=== PATIENT | female | born 1965 | race Caucasian/White ===

== ENCOUNTER 2022-10-06 14:47 | Observation (INO) | payer BC, OTHER ==
--- NOTE | 2022-10-06 16:06 | ED ---
Chest Pain HPI - General Chief Complaint: Chest Pain Stated Complaint: HTN Time Seen by Provider: 10/06/22 15:00 Source: patient, RN notes reviewed Mode of arrival: ambulatory Limitations: no limitations - History of Present Illness Initial Comments: 57-year-old female with a history of hypertension and takes lisinopril 40 mg per day who states that she was at her dentist office yesterday the x-ray when she was found have a very elevated blood pressure. On questioning by me she states she did not have any chest pain but did report the injury at that she was having intermittent chest pain and fatigue. Today she was to go down to her doctor's office in [facility] but when she arrived they did not have any ability to see her so she came back here. She denies any fevers chills nausea vomiting sweats she does have a history of smoking but states was never diagnosed with COPD or emphysema. Patient also states she was recently treated for a suspected UTI. She had frequency and states that her urine smelled kind of sweet she states that she still has some frequency. MD Complaint: chest pain, other - Related Data Home Medications Medication Instructions Recorded Confirmed Cyclobenzaprine [Flexeril] 1 tab PO TID PRN 03/14/14 03/14/14 Glimepiride [Amaryl] 2 mg PO AC-BRKFST 03/14/14 03/14/14 HYDROcodone/APAP 7.5-325MG [[place] 1 each PO Q4H PRN 03/14/14 03/14/14 7.5] HYDROcodone/IBUPROFEN 7.5-200 1 each PO Q8HR PRN 03/14/14 03/14/14 [Vicoprofen 7.5-200 mg] Levothyroxine Sodium [Synthroid] 50 mcg PO DAILY 03/14/14 03/14/14 metFORMIN HCL [Glucophage] 1,000 mg PO DAILY 03/14/14 03/14/14 Allergies Allergy/AdvReac Type Severity Reaction Status Date / Time No Known Allergies Allergy Verified 10/06/22 17:56 Review of Systems ROS Statement: Those systems with pertinent positive or pertinent negative responses have been documented in the HPI. ROS Other: All systems not noted in ROS Statement are negative. EKG Findings - EKG Results: EKG: interpreted by ERMTg, sinus rhythm (EKG interpreted by me shows sinus tachycardia rate 103 AK interval 120 QRS duration 82 QT since QTC 337/397 some artifact present no acute ST-T wave changes appreciated) Past Medical History Past Medical History: Diabetes Mellitus, Hyperlipidemia, Hypertension, Thyroid Disorder Additional Past Medical History / Comment(s): back pain History of Any Multi-Drug Resistant Organisms: None Reported Past Surgical History: Cholecystectomy, Hysterectomy, Tonsillectomy Additional Past Surgical History / Comment(s): neck surgery Past Psychological History: No Psychological Hx Reported Smoking Status: Current every day smoker Past Alcohol Use History: None Reported Past Drug Use History: None Reported General Exam - General Exam Comments Initial Comments: This is a well-developed well-nourished awake alert oriented 4 female Limitations: no limitations General appearance: alert, in no apparent distress Head exam: Present: atraumatic, normocephalic, normal inspection Eye exam: Present: normal appearance, PERRL, EOMI. Absent: scleral icterus, conjunctival injection, periorbital swelling ENT exam: Present: mucous membranes dry Neck exam: Present: normal inspection, full ROM, other (Stridor JVD or bruits). Absent: tenderness, meningismus, lymphadenopathy Respiratory exam: Present: normal lung sounds bilaterally. Absent: respiratory distress, wheezes, rales, rhonchi, stridor Cardiovascular Exam: Present: regular rate, normal rhythm, normal heart sounds. Absent: systolic murmur, diastolic murmur, rubs, gallop, clicks GI/Abdominal exam: Present: soft, normal bowel sounds. Absent: distended, tenderness, guarding, rebound, rigid Extremities exam: Present: normal inspection, full ROM, normal capillary refill. Absent: tenderness, pedal edema, joint swelling, calf tenderness Back exam: Present: normal inspection Neurological exam: Present: alert, oriented X3, CN II-XII intact Psychiatric exam: Present: normal affect, normal mood Skin exam: Present: warm, dry, intact, normal color. Absent: rash Course Vital Signs 10/06/22 14:52 Temperature 97 F L Pulse Rate 100 Respiratory 20 Rate Blood Pressure 200/85 O2 Sat by Pulse 99 Oximetry - Reevaluation(s) Reevaluation #1: 10/06/22 18:05 The patient was offered a 60 pack states they make her sick she states she started smoking again that her one year ago she's working through that and does plan to quit. Procedures - Smoking Cessation Time Spent Discussing Smoking Cessation w/Patient (Minutes): 31 Patient Acknowledges Need for Cessation: Yes Chest Pain MDM - MDM (Interpreted by me negative for acute processes. I did discuss the findings thus far the patient she states she is still having intermittent chest pain issue and I examined her she had no pain. He states this feels as if her daughter sitting on her chest when she has the pain. She will be admitted I did discuss case with Drew gonsalez for Dr. Taylor. Was pt. sent in by a medical professional or institution (, PA, FEATHER M[employer]ER, urgent care, hospital, or penitentiary...) When possible be specific @ -No Did you speak to anyone other than the patient for history (EMS, parent, family, police, friend...)? What history was obtained from this source @ -No Did you review nursing and triage notes (agree or disagree)? Why? @ -I reviewed and agree with nursing and triage notes Were old charts reviewed (outside hosp., previous admission, EMS record, old EKG, old radiological studies, urgent care reports/EKG's, penitentiary records)? Report findings @ -No old charts were reviewed as they were unavailable Differential Diagnosis (chest pain, altered mental status, abdominal pain women, abdominal pain men, vaginal bleeding, weakness, fever, dyspnea, syncope, headache, dizziness, GI bleed, back pain, seizure, CVA, palpatations, mental health)? @ -Chest pain, hypertension EKG interpreted by me (3pts min.). @ -As above X-rays interpreted by me (1pt min.). @ -As above CT interpreted by me (1pt min.). @ -None done U/S interpreted by me (1pt. min.). @ -None done What testing was considered but not performed or refused? (CT, X-rays, U/S, labs)? Why? @ -None What meds were considered but not given or refused? Why? @ -None Did you discuss the management of the patient with other professionals (professionals i.e. , RENETTA, FEATH[facility] [employer]ER, lab, RT, psych nurse, clinical social worker, caramel candy maker helper, teacher, loan servicing officer, rn case management)? Give summary @ -No Was smoking cessation discussed for >3mins.? @ -Yes Was critical care preformed (if so, how long)? @ -Yes 31 minutes Were there social determinants of health that impacted care today? How? (Homelessness, low income, unemployed, alcoholism, drug addiction, transportatio n, low edu. Level, literacy, decrease access to med. care, long-term, rehab)? @ -No Was there de-escalation of care discussed even if they declined (Discuss DNR or withdrawal of care, Hospice)? DNR status @ -No What co-morbidities impacted this encounter? (DM, HTN, Smoking, COPD, CAD, Cancer, CVA, ARF, Chemo, Hep., AIDS, mental health diagnosis, sleep apnea, morbid obesity)? @ -Diabetes, hypertension, hyperlipidemia] Was patient admitted / discharged? Hospital course, mention meds given and route, prescriptions, significant lab abnormalities, going to OR and other pertinent info. @ -hospital course patient was admitted Undiagnosed new problem with uncertain prognosis? @ -No Drug Therapy requiring intensive monitoring for toxicity (Heparin, Nitro, Insulin, Cardizem)? @ -No Were any procedures done? @ -No Diagnosis/symptom? @ -default chest pain, unstable angina, hypertension Acute, or Chronic, or Acute on Chronic? @ -Acute Uncomplicated (without systemic symptoms) or Complicated (systemic symptoms)? @ -default Side effects of treatment? @ -No Exacerbation, Progression, or Severe Exacerbation? @ -No Poses a threat to life or bodily function? How? (Chest pain, [place], [place], pneumonia, PE, COPD, DKA, ARF, appy, cholecystitis, CVA, Diverticulitis, Homicidal, Suicidal, threat to staff... and all critical care pts) @ -Potential is not treated Critical Care Time Critical Care Time: Yes Total Critical Care Time: 31 Critical Care Time: This included initial evaluation with history physical labs x-rays multiple reevaluation the patient discussed with the patient regarding findings admission orders discussed with the main service admission documentation of the above Disposition Clinical Impression: Unstable angina pectoris, Chest pain, Hypertension, Smoking Disposition: ADMITTED IP TO THIS [facility] Condition: Stable Referrals: None,Stated [Primary Care Provider] - 1-2 days Decision Date: 10/06/22 Decision Time: 17:45
--- NOTE | 2022-10-06 16:23 | XR ---
EXAMINATION TYPE: XR chest 2V DATE OF EXAM: 10/06/2022 COMPARISON: NONE HISTORY: Shortness of breath TECHNIQUE: Frontal and lateral views of the chest are obtained. FINDINGS: Scattered senescent parenchymal changes noted. Hyperinflation compatible with COPD. No evidence for infiltrate. No evidence for atelectasis. Heart size is stable. Mediastinal structures are stable and grossly unremarkable. No evidence for hilar prominence. Degenerative changes dorsal spine. IMPRESSION: 1. No evidence for acute pulmonary disease.
[2022-10-06 16:35] LABS: Basophils % (A) 0 %; Eosinophils # (A) 0.2 k/uL (0-0.7); Eosinophils % (A) 3 %; HCT 36.8 % (34.0-46.0); HGB 12.4 gm/dL (11.4-16.0); Lymphocytes # (A) 1.6 k/uL (1.0-4.8); Lymphocytes % (A) 20 %; MCH 29.2 pg (25.0-35.0); MCHC 33.6 g/dL (31.0-37.0); Mean Platelet Volume 8.5; Monocytes # (A) 0.5 k/uL (0-1.0); Monocytes % (A) 7 %; Neutrophils # (A) 5.4 k/uL (1.3-7.7); Neutrophils % (A) 69 %; Platelet Count 156 k/uL (150-450); RBC 4.23 m/uL (3.80-5.40); RDW 13.1 % (11.5-15.5); WBC 7.9 k/uL (3.8-10.6)
[2022-10-06 16:46] LABS: Potassium 4.8 mmol/L (3.5-5.1)
[2022-10-06 16:47] LABS: ALT 23 U/L (4-34); AST 23 U/L (14-36); African American GFR (CKD) 65 (>60 ml/min/1.73 sqM); Albumin 3.1 g/dL (3.5-5.0); Alkaline Phosphatase 74 U/L (38-126); Anion Gap 2 mmol/L; Blood Urea Nitrogen 20 mg/dL (7-17); Calcium 8.2 mg/dL (8.4-10.2); Carbon Dioxide 27 mmol/L (22-30); Chloride 107 mmol/L (98-107); Creatine Kinase 124 U/L (30-135); Glucose 168 mg/dL (74-99); Magnesium 1.8 mg/dL (1.6-2.3); Non-African American GFR(CKD) 56 (>60 ml/min/1.73 sqM); Sodium 136 mmol/L (137-145); Total Bilirubin 0.3 mg/dL (0.2-1.3); Total Protein 5.4 g/dL (6.3-8.2)
[2022-10-06] MEDS ORDERED: SODIUM CHLORIDE 0.9% 500 ML 500 ML IV STA (17:31)
[2022-10-06 17:42] LABS: Appearance,Urine Clear (Clear); Bacteria,Urine Rare /hpf; Bilirubin,Urine Negative (Negative); Blood,Urine Small (Negative); Color,Urine Light Yellow; Glucose,Urine (UA) Trace (Negative); Ketones,Urine Negative (Negative); Leukocyte Esterase,Urine Negative (Negative); Mucus,Urine Rare /hpf; Nitrite,Urine Negative (Negative); Protein,Urine 3+ (Negative); RBC,Urine 6 /hpf (0-5); Specific Gravity,Urine 1.008 (1.001-1.035); Urobilinogen,Urine <2.0 mg/dL (<2.0); WBC,Urine 1 /hpf (0-5)
[2022-10-06] MEDS ORDERED: HEPARIN SODIUM 1,000 UN/ML (10ML VL) IV ONE (18:08)
[2022-10-06] MEDS ORDERED: NITROGLYCERIN SL TABS 0.4 MG TAB SUBLINGUAL PRN (18:08)
[2022-10-06] MEDS ORDERED: clonazePAM 1 MG TAB PO PRN (18:11)
[2022-10-06] MEDS ORDERED: polyethylene glycoL 3350 17 GM POWD.PACK PO PRN (18:11)
[2022-10-06] MEDS ORDERED: HEPARIN SOD,PORK IN 0.45% NACL 25,000 UNIT in 0.45% NACL 1 250ML.BAG IV SCH (18:15)
[2022-10-06] MEDS: SODIUM CHLORIDE 0.9% 1,000 ML IV SCH (19:39)
[2022-10-06] MEDS ORDERED: INSULIN DETEMIR (LEVEMIR) 100 UNIT/ML SYR SQ SCH (21:00)
[2022-10-06] MEDS ORDERED: lisinopriL 20 MG TAB PO SCH (21:00)
[2022-10-06] MEDS ORDERED: GLIMEPIRIDE 4 MG TAB PO SCH (21:00)
[2022-10-06] MEDS ORDERED: LEVOTHYROXINE 50 MCG TAB PO SCH (21:00)
[2022-10-06] MEDS ORDERED: HYDROcodone/APAP 10-325MG 1 EACH TAB PO SCH (22:00)
[2022-10-06 22:12] LABS: Glucose,Whole Blood 56 mg/dL (70-110)
[2022-10-06 22:27] LABS: Glucose,Whole Blood 55 mg/dL (70-110)
[2022-10-06 22:43] LABS: Glucose,Whole Blood 66 mg/dL (70-110)
[2022-10-06 22:57] LABS: Glucose,Whole Blood 69 mg/dL (70-110)
[2022-10-06 23:15] LABS: Glucose,Whole Blood 76 mg/dL (70-110)
[2022-10-06] MEDS: NITROGLYCERIN OINT 1 INCH/GM PACKET TOPICAL SCH (23:27)
[2022-10-07 01:28] LABS: Glucose,Whole Blood 110 mg/dL (70-110)
[2022-10-07] MEDS ORDERED: cloNIDine HCL 0.2 MG TAB PO PRN (03:44)
--- NOTE | 2022-10-07 03:58 | P.HPIM ---
History of Present Illness H&P Date: 10/06/22 Chief Complaint: chest pain 57 year old female with DM , hypertension patient coming in for evaluation due to uncontrolled hypertension and chest pain patient was at her baseline status of health. she had a dentist appointment for routine check up, when the nurse checked her blood pressure and found it was elevated , it was repeated 3 times and found to have elevated systolic blood pressure in the 190s range . her appointment cancelled and she was told to see her PCP. she was in contact with her PCP who asked her to come see him in the Office, upon her arrival , the staff told her that the doc cant see her. she drove 1.5 hours to see him, and was very upset because of that, she started having chest pressure. then she went to the car and checked her blood pressure with her machine and found that her systolic blood pressure >190 she started experiencing central chest pressure rated it as 6/10 pressure like sensation no radiation no associated nausea , vomiting, no SOB, no profuse sweating, no dizziness, no palpitations, no headache, changes in vision or speech. she was very concerned and took a klonopin pill that made her feel better and came to the ER for evaluation . she otherwise denies any cardiac history , she denies any recent travel or ho spital stay , denies any history of blood clots. upon arrival to the hospital , she was found hypertensive , and was admitted for further management EKG no acute ST changes, blood work over all unremarkable , negative trops , CXR no acute pathology blood sugar was on the lower end , especially after her night dose of levemir Review of Systems Pertinent positives as noted in HPI. All other systems were reviewed and are negative Past Medical History Past Medical History: Diabetes Mellitus, Hyperlipidemia, Hypertension, Thyroid Disorder Additional Past Medical History / Comment(s): back pain History of Any Multi-Drug Resistant Organisms: None Reported Past Surgical History: Cholecystectomy, Hysterectomy, Tonsillectomy Additional Past Surgical History / Comment(s): neck surgery with metal placed Past Anesthesia/Blood Transfusion Reactions: No Reported Reaction Past Psychological History: No Psychological Hx Reported Smoking Status: Current every day smoker Past Alcohol Use History: None Reported Past Drug Use History: None Reported - Past Family History Mother Family Medical History: Diabetes Mellitus, Thyroid Disorder Additional Family Medical History / Comment(s): breast CA Father Family Medical History: Cancer, Coronary Artery Disease (CAD), Diabetes Mellitus, Thyroid Disorder Additional Family Medical History / Comment(s): colon/skin cancer Medications and Allergies Home Medications Medication Instructions Recorded Confirmed Type Levothyroxine Sodium [Synthroid] 50 mcg PO HS 03/14/14 10/06/22 History Glimepiride [Amaryl] 4 mg PO HS 10/06/22 10/06/22 History HYDROcodone/APAP 10-325MG [[place] 1 tab PO QID 10/06/22 10/06/22 History 10-325] Insulin Glargine,Hum.rec.anlog 60 units SQ HS 10/06/22 10/06/22 History [Lantus Solostar Pen] Lidocaine 5% Patch [Lidoderm] 1 patch TOPICAL DAILY PRN 10/06/22 10/06/22 History clonazePAM [KlonoPIN] 1 mg PO DAILY PRN 10/06/22 10/06/22 History lisinopriL [Zestril] 40 mg PO HS 10/06/22 10/06/22 History polyethylene glycoL 3350 [Miralax] 17 gm PO DAILY PRN 10/06/22 10/06/22 History Allergies Allergy/AdvReac Type Severity Reaction Status Date / Time No Known Allergies Allergy Verified 10/06/22 17:56 Physical Exam Vitals: Vital Signs Temp Pulse Pulse Resp BP BP Pulse Ox 10/06/22 23:24 97.9 F 80 16 149/76 98 10/06/22 22:13 97.8 F 89 18 167/91 98 10/06/22 21:00 90 16 181/100 99 10/06/22 19:30 84 16 196/101 98 10/06/22 19:00 204/109 10/06/22 18:00 157/81 10/06/22 17:00 80 21 172/89 97 10/06/22 16:00 86 20 187/95 98 10/06/22 15:04 104 H 21 10/06/22 14:52 97 F L 100 20 200/85 99 Intake and Output 10/06/22 10/06/22 10/07/22 14:59 22:59 06:59 Intake Total 45.185 Balance 45.185 Intake: Intake, IV Titration 45.185 Amount Heparin Sod,Pork in 0.45% 45.185 NaCl 25,000 unit In 0.45 % NaCl 1 250ml.bag @ 12 UNITS/KG/HR 9.253 mls/hr IV .Q24H [facility] Rx#: [id number] Other: Voiding Method Toilet Weight 77.111 kg 77.111 kg Constitutional: No acute distress, conversant, pleasant Eyes: Anicteric sclerae, moist conjunctiva, Pupils equal round reactive to light ENMT: NC/AT Oropharynx clear, no erythema, or exudates Neck: Supple, no masses, or JVD No carotid bruits No thyromegaly Lungs: reproducible chest pain upon palpation Clear to auscultation Clear to percussion Normal respiratory effort, no accessory muscle use Cardiovascular: Heart regular in rate and rhythm, No murmurs, gallops, or rubs No peripheral edema Abdominal: Soft Nontender, no guarding, rebound or rigidity Abdomen moving with respiration Normoactive bowel sounds No hepatomegaly, No splenomegaly No palpable mass No abdominal wall hernia noted Skin: Normal temperature, tone, texture, turgor No induration No subcutaneous nodules No rash, lesions No ulcers Extremities: No digital cyanosis No clubbing Pedal pulses intact and symmetrical Radial pulses intact and symmetrical No calf tenderness Psychiatric: Alert and oriented to person, place and time Appropriate affect fair judgement Neuro Muscles Strength 5/5 in all 4 extremities Sensation to light touch grossly present throughout Cranial nerves II-XII grossly intact Lymphatics: no palpable cervical or supraclavicular lymph nodes Results CBC & Chem 7: 10/06/22 16:14 10/06/22 16:14 Labs: Abnormal Lab Results - Last 24 Hours (Table) 10/06/22 10/06/22 10/06/22 Range/Units 16:14 16:14 22:07 Sodium 136 L (137-145) mmol/L BUN 20 H (7-17) mg/dL Creatinine 1.08 H (0.52-1.04) mg/dL Glucose 168 H (74-99) mg/dL POC Glucose (mg/dL) 56 L (70-110) mg/dL Calcium 8.2 L (8.4-10.2) mg/dL Total Protein 5.4 L (6.3-8.2) g/dL Albumin 3.1 L (3.5-5.0) g/dL Urine Protein 3+ H (Negative) Urine Glucose (UA) Trace H (Negative) Urine Blood Small H (Negative) Urine RBC 6 H (0-5) /hpf Urine Bacteria Rare H (None) /hpf Urine Mucus Rare H (None) /hpf 10/06/22 10/06/22 10/06/22 Range/Units 22:25 22:40 22:55 Sodium (137-145) mmol/L BUN (7-17) mg/dL Creatinine (0.52-1.04) mg/dL Glucose (74-99) mg/dL POC Glucose (mg/dL) 55 L 66 L 69 L (70-110) mg/dL Calcium (8.4-10.2) mg/dL Total Protein (6.3-8.2) g/dL Albumin (3.5-5.0) g/dL Urine Protein (Negative) Urine Glucose (UA) (Negative) Urine Blood (Negative) Urine RBC (0-5) /hpf Urine Bacteria (None) /hpf Urine Mucus (None) /hpf Thrombosis Risk Factor Assmnt - Choose All That Apply Any of the Below Risk Factors Present?: Yes Each Factor Represents 1 point: Age 41-60 years, Obesity (BMI >25) Other Risk Factors: No Thrombosis Risk Factor Assessment Total Risk Factor Score: 2 Thrombosis Risk Factor Assessment Level: Low Risk Assessment and Plan Assessment: atypical chest pain , reproducible to the touch trops negative EKG sinus tachycardia , no acute ST changes, CXR no acute pathology monitor vital signs ASA , statin nitro PRN resume klonopin PRN ambien for insomnia cardiology consult dog beautician discontinue heparin drip hypertensive urgency resume lisinopril , home med add amlodipine 5 mg daily clonidin 0.2 Mg PRN for systolic blood pressure >180 chronic condition s DM , resume levemir , insulin sliding scale full code DVT PPX heparin sc tid
[2022-10-07] MEDS ORDERED: ZOLPIDEM 5 MG TAB PO PRN (03:59)
[2022-10-07] MEDS: NITROGLYCERIN OINT 1 INCH/GM PACKET TOPICAL SCH (05:40)
[2022-10-07] MEDS: HYDROcodone/APAP 10-325MG 1 EACH TAB PO SCH ×3 (05:40→18:21)
[2022-10-07 06:07] LABS: Glucose,Whole Blood 56 mg/dL (70-110)
[2022-10-07] MEDS: INSULIN ASPART (NovoLOG) 100 UNIT/ML VIAL SQ SCH ×3 (06:21→18:19)
[2022-10-07 06:25] LABS: Glucose,Whole Blood 55 mg/dL (70-110)
[2022-10-07 06:44] LABS: Glucose,Whole Blood 82 mg/dL (70-110)
[2022-10-07 08:19] LABS: Calcium 8.5 mg/dL (8.4-10.2); Potassium 4.4 mmol/L (3.5-5.1)
[2022-10-07] MEDS: HEPARIN SODIUM,PORCINE/PF 5,000 UNIT/0.5 ML SYRINGE SQ SCH ×2 (08:33→16:32)
[2022-10-07] MEDS: SODIUM CHLORIDE 0.9% 1,000 ML IV SCH ×2 (08:36→16:21)
[2022-10-07] MEDS ORDERED: hydroCHLOROthiazide 25 MG TAB PO SCH (09:00)
[2022-10-07] MEDS ORDERED: ATORVASTATIN 20 MG TAB PO SCH (09:00)
[2022-10-07] MEDS ORDERED: ATORVASTATIN 40 MG TAB PO SCH (09:00)
[2022-10-07] MEDS ORDERED: ASPIRIN 325 MG TAB PO SCH (09:00)
[2022-10-07] MEDS ORDERED: ASPIRIN 81 MG PO SCH (09:00)
[2022-10-07] MEDS ORDERED: amLODIPine 5 MG TAB PO SCH (09:00)
[2022-10-07 09:28] LABS: Chol/HDL Ratio 2.19 Ratio
--- NOTE | 2022-10-07 09:56 | P.CRDCN ---
History of Present Illness Consult date: 10/07/22 History of present illness: HISTORY OF PRESENT ILLNESS: This is a 57-year-old female with a past medical history significant for hypertension, hyperlipidemia, diabetes, and nicotine dependence. Patient does not follow with a [employer] consultant. We have been asked to see the patient in consultation for chest pain and hypertension. Patient examined at the bedside. Patient states she was at the dentist 2 days ago and was found to have significantly elevated blood pressures with a systolic in the 190s and a diastolic in the 110s. She was advised to call her primary care physician and make an appointment. She states that she went to her primary care physician yesterday out in [place] but was told that she could not be seen and she did not have an appointment. She states that she left her primary care office and while she was sitting in her car she checked her BP and her systolic blood pressure was found to be in the 190s. She reports feeling some tingling in her lips and some tightness in her chest. She states that she was upset because she could not be seen by her primary care physician so she took a Klonopin to help her relax. She then presented to the ER for further evaluation of her symptoms. Most recent blood pressure 160/87. The patient currently takes lisinopril 40 mg at home. She has been started on Norvasc 5 mg daily. She denies any further episodes of chest pain or pressure. She denies any shortness of breath. * EKG reveals sinus mechanism with no signs of acute ischemia * Chest xray negative for acute process * Laboratory data: WBC 7.9. Hemoglobin 12.4. Platelet count 156. D-dimer 0.56. Sodium 140. Potassium 4.4. BUN 16. Creatinine 1.07. Troponin negative 3. ProBNP 502. TSH 1.590. * Current home cardiac medications include lisinopril 40 mg at night REVIEW OF SYSTEMS: At the time of my exam: CONSTITUTIONAL: Denies fever or chills. HEENT: Denies blurred vision, vision changes, or eye pain. Denies hemoptysis CARDIOVASCULAR: Denies chest pain. Denies orthopnea. Denies PND. Denies palpitations RESPIRATORY: Denies shortness of breath. GASTROINTESTINAL: Denies abdominal pain. Denies nausea or vomiting. HEMATOLOGIC: Denies bleeding disorders. GENITOURINARY: Denies any blood in urine. SKIN: Denies pruitis. Denies rash. PHYSICAL EXAM: VITAL SIGNS: Reviewed. GENERAL: Well-developed in no acute distress. HEENT: Head is normocephalic. Pupils are equal, round. Sclerae anicteric. Mucous membranes of the mouth are moist. Neck supple. No JVD or thyromegaly LUNGS: Respirations even and unlabored. Lungs essentially clear to auscultation bilaterally. HEART: Regular rate and rhythm. S1 and S2 heard. ABDOMEN: Soft. Nondistended. Nontender. EXTREMITIES: Normal range of motion. No clubbing or cyanosis. Peripheral pulses intact. No lower extremity edema NEUROLOGIC: Awake and alert. Oriented x 3. ASSESSMENT: Hypertension, uncontrolled Chest pain, troponin negative x 3, ACS ruled out Hyperlipidemia Diabetes Nicotine dependence PLAN: An acute coronary event has been ruled out Obtain 2-D echo to assess cardiac structure and function Continue lisinopril. Patient has been started on Norvasc Add hydrochlorothiazide 25 mg daily Continue aspirin and Lipitor Recommend outpatient stress testing Anticipate discharge home this afternoon Nurse practitioner note has been reviewed by physician. Signing provider agrees with the documented findings, assessment, and plan of care. Past Medical History Past Medical History: Diabetes Mellitus, Hyperlipidemia, Hypertension, Thyroid Disorder Additional Past Medical History / Comment(s): back pain History of Any Multi-Drug Resistant Organisms: None Reported Past Surgical History: Cholecystectomy, Hysterectomy, Tonsillectomy Additional Past Surgical History / Comment(s): neck surgery with metal placed Past Anesthesia/Blood Transfusion Reactions: No Reported Reaction Past Psychological History: No Psychological Hx Reported Smoking Status: Current every day smoker Past Alcohol Use History: None Reported Past Drug Use History: None Reported - Past Family History Mother Family Medical History: Diabetes Mellitus, Thyroid Disorder Additional Family Medical History / Comment(s): breast CA Father Family Medical History: Cancer, Coronary Artery Disease (CAD), Diabetes Mellitus, Thyroid Disorder Additional Family Medical History / Comment(s): colon/skin cancer Medications and Allergies Home Medications Medication Instructions Recorded Confirmed Type Levothyroxine Sodium [Synthroid] 50 mcg PO HS 03/14/14 10/06/22 History Glimepiride [Amaryl] 4 mg PO HS 10/06/22 10/06/22 History HYDROcodone/APAP 10-325MG [[place] 1 tab PO QID 10/06/22 10/06/22 History 10-325] Insulin Glargine,Hum.rec.anlog 60 units SQ HS 10/06/22 10/06/22 History [Lantus Solostar Pen] Lidocaine 5% Patch [Lidoderm] 1 patch TOPICAL DAILY PRN 10/06/22 10/06/22 History clonazePAM [KlonoPIN] 1 mg PO DAILY PRN 10/06/22 10/06/22 History lisinopriL [Zestril] 40 mg PO HS 10/06/22 10/06/22 History polyethylene glycoL 3350 [Miralax] 17 gm PO DAILY PRN 10/06/22 10/06/22 History Allergies Allergy/AdvReac Type Severity Reaction Status Date / Time No Known Allergies Allergy Verified 10/06/22 17:56 Physical Exam Vitals: Vital Signs Temp Pulse Pulse Resp BP BP Pulse Ox 10/07/22 07:51 96 10/07/22 03:53 97.5 F L 79 18 160/87 97 10/06/22 23:24 97.9 F 80 16 149/76 98 10/06/22 22:13 97.8 F 89 18 167/91 98 10/06/22 21:00 90 16 181/100 99 10/06/22 19:30 84 16 196/101 98 10/06/22 19:00 204/109 10/06/22 18:00 157/81 10/06/22 17:00 80 21 172/89 97 10/06/22 16:00 86 20 187/95 98 10/06/22 15:04 104 H 21 10/06/22 14:52 97 F L 100 20 200/85 99 Intake and Output 10/06/22 10/07/22 10/07/22 22:59 06:59 14:59 Intake Total 45.185 Balance 45.185 Intake: Intake, IV Titration 45.185 Amount Heparin Sod,Pork in 0.45% 45.185 NaCl 25,000 unit In 0.45 % NaCl 1 250ml.bag @ 12 UNITS/KG/HR 9.253 mls/hr IV .Q24H [facility] Rx#: [id number] Other: Voiding Method Toilet # Voids 1 Weight 77.111 kg Results 10/06/22 16:14 10/07/22 06:41 Cardiac Enzymes 10/06/22 10/06/22 10/06/22 Range/Units 16:14 18:38 21:24 AST 23 (14-36) U/L Troponin I <0.012 <0.012 (0.000-0.034) ng/mL 10/07/22 Range/Units 01:00 AST (14-36) U/L Troponin I <0.012 (0.000-0.034) ng/mL Coagulation 10/07/22 Range/Units 01:00 APTT 23.6 (22.0-30.0) sec CBC 10/06/22 Range/Units 16:14 WBC 7.9 (3.8-10.6) k/uL RBC 4.23 (3.80-5.40) m/uL Hgb 12.4 (11.4-16.0) gm/dL Hct 36.8 (34.0-46.0) % Plt Count 156 (150-450) k/uL Comprehensive Metabolic Panel 10/06/22 Range/Units 16:14 Sodium 136 L (137-145) mmol/L Potassium 4.8 (3.5-5.1) mmol/L Chloride 107 (98-107) mmol/L Carbon Dioxide 27 (22-30) mmol/L BUN 20 H (7-17) mg/dL Creatinine 1.08 H (0.52-1.04) mg/dL Glucose 168 H (74-99) mg/dL Calcium 8.2 L (8.4-10.2) mg/dL AST 23 (14-36) U/L ALT 23 (4-34) U/L Alkaline Phosphatase 74 (38-126) U/L Total Protein 5.4 L (6.3-8.2) g/dL Albumin 3.1 L (3.5-5.0) g/dL Current Medications Generic Name Dose Route Start Last Admin Trade Name Freq PRN Reason Stop Dose Admin Hydrocodone Bitart/Acetaminophen 1 each 10/07/22 06:00 10/07/22 05:40 Hydrocodone/Apap 10-325mg 1 Each Tab PO 1 each Q6HR IVAN Administration Amlodipine Besylate 5 mg 10/07/22 09:00 Amlodipine 5 Mg Tab PO DAILY [facility] Aspirin 81 mg 10/07/22 09:00 Aspirin 81 Mg PO DAILY [facility] Atorvastatin Calcium 20 mg 10/07/22 09:00 Atorvastatin 20 Mg Tab PO DAILY IVAN Clonazepam 1 mg 10/06/22 18:11 Clonazepam 1 Mg Tab PO DAILY PRN Anxiety Clonidine 0.2 mg 10/07/22 03:44 Clonidine Hcl 0.2 Mg Tab PO TID PRN Blood Pressure - High Heparin Sodium (Porcine) 5,000 unit 10/07/22 08:00 Heparin Sodium,Porcine/Pf 5,000 Unit/0.5 Ml Syringe SQ Q8HR [facility] Sodium Chloride 1,000 mls @ 100 mls/hr 10/06/22 18:15 10/06/22 19:39 Saline 0.9% IV 100 mls/hr .Q10H [facility] Administration Insulin Aspart 0 unit 10/07/22 07:30 10/07/22 06:21 Insulin Aspart (Novolog) 100 Unit/Ml Vial SQ Not Given ACHS [facility] Protocol Insulin Detemir 60 unit 10/06/22 21:00 10/06/22 22:59 Insulin Detemir (Levemir) 100 Unit/Ml Syr SQ Not Given HS [facility] Levothyroxine Sodium 50 mcg 10/06/22 21:00 10/06/22 22:59 Levothyroxine 50 Mcg Tab PO Not Given HS [facility] Lisinopril 40 mg 10/06/22 21:00 10/06/22 22:59 Lisinopril 20 Mg Tab PO Not Given HS [facility] Nitroglycerin 0.4 mg 10/06/22 18:08 Nitroglycerin Sl Tabs 0.4 Mg Tab SUBLINGUAL Q5M PRN Chest Pain Nitroglycerin 1 inch 10/07/22 00:00 10/07/22 05:40 Nitroglycerin Oint 1 Inch/Gm Packet TOPICAL 1 inch Q6HR [facility] Administration Polyethylene Glycol 17 gm 10/06/22 18:11 Polyethylene Glycol 3350 17 Gm Powd.Pack PO DAILY PRN Constipation Zolpidem Tartrate 10 mg 10/07/22 03:59 Zolpidem 5 Mg Tab PO HS PRN Insomnia Intake and Output 10/06/22 10/07/22 10/07/22 22:59 06:59 14:59 Intake Total 45.185 Balance 45.185 Intake: Intake, IV Titration 45.185 Amount Heparin Sod,Pork in 0.45% 45.185 NaCl 25,000 unit In 0.45 % NaCl 1 250ml.bag @ 12 UNITS/KG/HR 9.253 mls/hr IV .Q24H [facility] Rx#: [id number] Other: Voiding Method Toilet # Voids 1 Weight 77.111 kg 10/06/22 16:14 10/06/22 16:14
[2022-10-07 12:23] VITALS: TEMP 98.1
[2022-10-07 12:31] LABS: Glucose,Whole Blood 167 mg/dL (70-110)
[2022-10-07 16:04] LABS: Glucose,Whole Blood 179 mg/dL (70-110)
[2022-10-07 16:35] VITALS: PULSE 82; RESP 17
[2022-10-07 16:48] VITALS: BP 179/80
--- NOTE | 2022-10-07 18:14 | P.DS ---
Providers Date of admission: 10/06/22 18:08 Expected date of discharge: 10/07/22 Attending physician: Marisol Taylor MD Consults: 10/06/22 18:08 Consult Physician Urgent Consulting Provider: Wilmer Lunsford Consult Reason/Comments: Chest pain Do you want consulting provider notified?: Yes Primary care physician: Stated None Hospital Course: Hypertensive urgency Chest pain, atypical Hyperlipidemia Diabetes type 2 57 year old female with DM , hypertension presented for evaluation due to uncontrolled hypertension and chest pain. In the emergency room, patient was afebrile, heart rate 100, blood pressure was 200/85, 99% on room air. CBC was unremarkable. Chemistries showed hyponatremia to 136, BUN of 20, creatinine 1.08, glucose of 168. Liver function tests were unremarkable. Initial troponin was less than 0.012 and trended to less than 0.012 after 2 checks. BNP was 502. TSH was 1.59. Lipid panel was significant for elevated triglycerides at 199, LDL of 40, HDL of 67.2. UA showed 3+ protein, trace glucose, small blood, 6 red blood cells, rare bacteria. Chest x-ray showed no evidence of acute pulmonary disease. EKG showed sinus tachycardia with no ischemic changes. Case was discussed with the emergency room physician decision was made to observe the patient for hypertensive urgency as well as chest pain. Cardiology was consulted and facilitated management. They recommended echocardiogram, however, read was pending at the time of discharge. Patient had amlodipine and hydrochlorothiazide added to her medication regimen. She was also discharged on new medications for aspirin and atorvastatin. She had some episodes of hypoglycemia while she was hospitalized, and I recommended she taper back her insulin to 50 units daily at bedtime instead of 6 units daily at bedtime given that her A1c was 6.4% and well within target. I recommended she follow-up with cardiology for outpatient stress test as recommended by the cardiology team as well as for follow-up of her echocardiogram results. Gen: awake, alert HEENT: normocephalic, atraumatic, good hearing acuity, moist mucous membranes Resp: good air exchange, breathing comfortably with no accessory muscle use, clear to auscultation bilaterally CVS: good distal perfusion x 4, regular rate and rhythm, no murmurs GI: soft, NTTP, ND : no SPT, no CVAT, [place] catheter not present MSK: no pitting edema, no clubbing Neuro: non-focal, moving all extremities Psych: cooperative, euthymic mood Patient Condition at Discharge: Good Plan - Discharge Summary Discharge Rx Participant: No New Discharge Prescriptions: New Aspirin 81 mg PO DAILY #30 tab hydroCHLOROthiazide [Hydrodiuril] 25 mg PO DAILY #30 tab Atorvastatin [Lipitor] 40 mg PO DAILY #30 tab amLODIPine [Norvasc] 5 mg PO DAILY #30 tab Continue Levothyroxine Sodium [Synthroid] 50 mcg PO HS polyethylene glycoL 3350 [Miralax] 17 gm PO DAILY PRN PRN Reason: Constipation Lidocaine 5% Patch [Lidoderm 5% Patch] 1 patch TOPICAL DAILY PRN PRN Reason: Pain lisinopriL [Zestril] 40 mg PO HS HYDROcodone/APAP 10-325MG [[place] 10-325] 1 tab PO QID clonazePAM [KlonoPIN] 1 mg PO DAILY PRN PRN Reason: Anxiety Glimepiride [Amaryl] 4 mg PO HS Changed Insulin Glargine,Hum.rec.anlog [Lantus Solostar Pen] 50 units SQ HS #0 Discharge Medication List Levothyroxine Sodium [Synthroid] 50 mcg PO HS 03/14/14 [History] Glimepiride [Amaryl] 4 mg PO HS 10/06/22 [History] HYDROcodone/APAP 10-325MG [[place] 10-325] 1 tab PO QID 10/06/22 [History] Lidocaine 5% Patch [Lidoderm 5% Patch] 1 patch TOPICAL DAILY PRN 10/06/22 [History] clonazePAM [KlonoPIN] 1 mg PO DAILY PRN 10/06/22 [History] lisinopriL [Zestril] 40 mg PO HS 10/06/22 [History] polyethylene glycoL 3350 [Miralax] 17 gm PO DAILY PRN 10/06/22 [History] Aspirin 81 mg PO DAILY #30 tab 10/07/22 [Rx] Atorvastatin [Lipitor] 40 mg PO DAILY #30 tab 10/07/22 [Rx] Insulin Glargine,Hum.rec.anlog [Lantus Solostar Pen] 50 units SQ HS #0 10/07/22 [Rx] amLODIPine [Norvasc] 5 mg PO DAILY #30 tab 10/07/22 [Rx] hydroCHLOROthiazide [Hydrodiuril] 25 mg PO DAILY #30 tab 10/07/22 [Rx] Follow up Appointment(s)/Referral(s): None,Stated [Primary Care Provider] - 1-2 days Discharge Disposition: HOME SELF-CARE
--- NOTE | 2022-10-08 14:39 | CA ---
Transthoracic Echo Report Name: Wen Parsons Age: 57 Gender: F : 1965 Exam Date: 10/07/2022 15:36 Exam Location: [place] Echo Ht (in): 64 Wt (lb): 170 Ordering Physician: Emily Meyer Attending/Referring Phys: [id number], Mitch Jewelry Sorter Radha Charles RDCS Procedure CPT: Indications: LV function Cardiac Hx: Technical Quality: Fair Contrast 1: Total Dose (mL): Contrast 2: Total Dose (mL): MEASUREMENTS (Male / Female) Normal Values 2D ECHO LV Diastolic Diameter PLAX 4.1 cm 4.2 - 5.9 / 3.9 - 5.3 cm LV Systolic Diameter PLAX 2.7 cm IVS Diastolic Thickness 1.3 cm 0.6 - 1.0 / 0.6 - 0.9 cm LVPW Diastolic Thickness 1.5 cm 0.6 - 1.0 / 0.6 - 0.9 cm LV Relative Wall Thickness 0.7 RV Internal Dim ED PLAX 3.3 cm LA Volume 68.4 cm??? 18 - 58 / 22 - 52 cm??? M-MODE Aortic Root Diameter MM 2.7 cm LA Systolic Diameter MM 4.2 cm LA Ao Ratio MM 1.6 AV Cusp Separation MM 1.4 cm DOPPLER AV Peak Velocity 156.7 cm/s AV Peak Gradient 9.8 mmHg LVOT Peak Velocity 98.9 cm/s LVOT Peak Gradient 3.9 mmHg MV Area PHT 3.4 cm??? Mitral E Point Velocity 105.0 cm/s Mitral A Point Velocity 128.3 cm/s Mitral E to A Ratio 0.8 MV Deceleration Time 221.3 ms MV E' Velocity 7.6 cm/s Mitral E to MV E' Ratio 13.7 TR Peak Velocity 276.7 cm/s TR Peak Gradient 30.6 mmHg Right Ventricular Systolic Press 34.0 mmHg FINDINGS Left Ventricle Mildly increased left ventricular wall thickness. Left ventricular cavity size normal. Normal left ventricular systolic function with no obvious regional wall motion abnormalities. Left ventricular ejection fraction is estimated at 55- 60%. Right Ventricle Normal right ventricular size and function. Mild pulmonary hypertension. Right Atrium Normal right atrial size. Left Atrium Moderately increased left atrial volume. Mildly increased left atrial area. Mitral Valve Structurally normal mitral valve. No mitral stenosis. Mild mitral regurgitation.mitral valve thickened. Aortic Valve Trileaflet aortic valve. No aortic valve stenosis or regurgitation. Tricuspid Valve Structurally normal tricuspid valve. Mild tricuspid regurgitation. Pulmonic Valve Structurally normal pulmonic valve. Pericardium No pericardial effusion. Aorta Normal size aortic root and proximal ascending aorta. CONCLUSIONS 1. Normal left ventricle size and systolic function. 2. Mild mitral and tricuspid regurgitation. Previewed by: Dr. Lindsey Gallego MD (Electronically Signed) Final Date: 08 October 2022 14:38
== END 2022-10-07 19:06 | disposition home or self-care (01) ==
LOC: EC 14:47 → 3SCARD 18:08
PROVIDERS: ADMIT Internal Medicine; ATTEND Internal Medicine
DX: R07.89 Other chest pain (principal); I16.0 Hypertensive urgency; E11.9 Type 2 diabetes mellitus without complications; I10 Essential (primary) hypertension; E78.5 Hyperlipidemia, unspecified; F17.200 Nicotine dependence, unspecified, uncomplicated; E07.9 Disorder of thyroid, unspecified; R00.0 Tachycardia, unspecified; G47.00 Insomnia, unspecified; R20.2 Paresthesia of skin; E87.1 Hypo-osmolality and hyponatremia; E78.1 Pure hyperglyceridemia; Z71.6 Tobacco abuse counseling; E66.9 Obesity, unspecified; Z68.29 Body mass index [BMI] 29.0-29.9, adult; Z79.84 Long term (current) use of oral hypoglycemic drugs; Z79.4 Long term (current) use of insulin; Z79.890 Hormone replacement therapy; Z79.899 Other long term (current) drug therapy; Z90.49 Acquired absence of other specified parts of digestive tract; Z90.710 Acquired absence of both cervix and uterus; Z98.890 Other specified postprocedural states; Z80.3 Family history of malignant neoplasm of breast; Z80.8 Family history of malignant neoplasm of other organs or systems; Z83.3 Family history of diabetes mellitus; Z82.49 Family history of ischemic heart disease and other diseases of the circulatory system; Z83.49 Family history of other endocrine, nutritional and metabolic diseases; Z80.0 Family history of malignant neoplasm of digestive organs
CPT/HCPCS: 96361; 96366 ×2; 96372; 96376; 96365; 99291; 36415; 94760; 93005; 93306; 85379; 83880; 80061; 80053; 80048; 84443; 82550; 83735; 84484 ×2; 85025; 85730; 81001; 71046; G0378 ×2; J1644 ×3

== ENCOUNTER 2022-12-25 11:06 | Emergency (ER) | payer OTHER ==
--- NOTE | 2022-12-25 11:42 | ED ---
General Adult HPI - General Chief complaint: Fall Stated complaint: Fall 1 step, foot pain Time Seen by Provider: 12/25/22 11:16 Source: patient, RN notes reviewed Mode of arrival: ambulatory Limitations: no limitations - History of Present Illness Initial comments: 57-year-old female presents to the emergency department with chief complaint of left foot pain. Patient states that she turned and slipped last night around 20:30 and noticed pain to her left foot. She is unsure of the exact mechanism of injury. She states that she takes [place] 10mg at home for back pain. She states that she took an extra one last night to help with the pain. She applied a lidocaine patch and a heating pad which helped with the pain. She states that the pain is worse today and there is swelling to the left foot. Denies loss of consciousness, hitting her head, any other injury. - Related Data Home Medications Medication Instructions Recorded Confirmed Levothyroxine Sodium [Synthroid] 50 mcg PO HS 03/14/14 10/06/22 Glimepiride [Amaryl] 4 mg PO HS 10/06/22 10/06/22 HYDROcodone/APAP 10-325MG [[place] 1 tab PO QID 10/06/22 10/06/22 10-325] Lidocaine 5% Patch [Lidoderm 5% 1 patch TOPICAL DAILY PRN 10/06/22 10/06/22 Patch] clonazePAM [KlonoPIN] 1 mg PO DAILY PRN 10/06/22 10/06/22 lisinopriL [Zestril] 40 mg PO HS 10/06/22 10/06/22 polyethylene glycoL 3350 [Miralax] 17 gm PO DAILY PRN 10/06/22 10/06/22 Previous Rx's Medication Instructions Recorded Aspirin 81 mg PO DAILY #30 tab 10/07/22 Atorvastatin [Lipitor] 40 mg PO DAILY #30 tab 10/07/22 Insulin Glargine,Hum.rec.anlog 50 units SQ HS #0 10/07/22 [Lantus Solostar Pen] amLODIPine [Norvasc] 5 mg PO DAILY #30 tab 10/07/22 hydroCHLOROthiazide [Hydrodiuril] 25 mg PO DAILY #30 tab 10/07/22 Cyclobenzaprine [Flexeril] 5 mg PO BID #10 tablet 12/25/22 Allergies Allergy/AdvReac Type Severity Reaction Status Date / Time No Known Allergies Allergy Verified 12/25/22 11:14 Review of Systems ROS Statement: Those systems with pertinent positive or pertinent negative responses have been documented in the HPI. ROS Other: All systems not noted in ROS Statement are negative. Past Medical History Past Medical History: Diabetes Mellitus, Hyperlipidemia, Hypertension, Thyroid Disorder Additional Past Medical History / Comment(s): back pain History of Any Multi-Drug Resistant Organisms: None Reported Past Surgical History: Cholecystectomy, Hysterectomy, Tonsillectomy Additional Past Surgical History / Comment(s): neck surgery with metal placed Past Anesthesia/Blood Transfusion Reactions: No Reported Reaction Past Psychological History: No Psychological Hx Reported Smoking Status: Current every day smoker Past Alcohol Use History: None Reported Past Drug Use History: None Reported - Past Family History Mother Family Medical History: Diabetes Mellitus, Thyroid Disorder Additional Family Medical History / Comment(s): breast CA Father Family Medical History: Cancer, Coronary Artery Disease (CAD), Diabetes Mellitus, Thyroid Disorder Additional Family Medical History / Comment(s): colon/skin cancer General Exam Limitations: no limitations General appearance: alert, in no apparent distress Head exam: Present: atraumatic, normocephalic, normal inspection Eye exam: Present: normal appearance ENT exam: Present: normal exam, mucous membranes moist Respiratory exam: Present: normal lung sounds bilaterally. Absent: respiratory distress, wheezes, rales, rhonchi, stridor Cardiovascular Exam: Present: regular rate, normal rhythm, normal heart sounds. Absent: systolic murmur, diastolic murmur, rubs, gallop, clicks Extremities exam: Present: other (Left foot swelling to medial aspect, DP and PT pulses 2+, capillary refill unable to be assess due to nail romanian, decreased ROM to left ankle, full ROM to left digits). Absent: tenderness, pedal edema, joint swelling, calf tenderness Skin exam: Present: warm, dry, intact, normal color. Absent: rash Course Vital Signs 12/25/22 11:11 Temperature 98.1 F Pulse Rate 85 Respiratory 18 Rate Blood Pressure 123/80 O2 Sat by Pulse 98 Oximetry Medical Decision Making - Medical Decision Making Was pt. sent in by a medical professional or institution (, PA, ARCHITECTURE TECHNICIAN, urgent care, hospital, or group home...) When possible be specific @ -No Did you speak to anyone other than the patient for history (EMS, parent, family, police, friend...)? What history was obtained from this source @ -No Did you review nursing and triage notes (agree or disagree)? Why? @ -I reviewed and agree with nursing and triage notes Were old charts reviewed (outside hosp., previous admission, EMS record, old EKG, old radiological studies, urgent care reports/EKG's, group home records)? Report findings @ -No old charts were reviewed Differential Diagnosis (chest pain, altered mental status, abdominal pain women, abdominal pain men, vaginal bleeding, weakness, fever, dyspnea, syncope, headache, dizziness, GI bleed, back pain, seizure, CVA, palpatations, mental health, musculoskeletal)? @ -Sprain, fracture,Differential Musculoskeletal Muscular strain, contusion, ligament sprain, fracture, arthritis, septic arthritis, bursitis, cellulitis, muscle spasm, nerve compression, DVT, arterial occlusion, herpes zoster, electrolyte abnormality, tumor.... This is not meant to be in all inclusive list EKG interpreted by me (3pts min.). @ -None X-rays interpreted by me (1pt min.). @ -X-ray left foot showed no acute fracture CT interpreted by me (1pt min.). @ -None done U/S interpreted by me (1pt. min.). @ -None done What testing was considered but not performed or refused? (CT, X-rays, U/S, labs)? Why? @ -None What meds were considered but not given or refused? Why? @ -None Did you discuss the management of the patient with other professionals (professionals i.e. , PA, ARCHITECTURE TECHNICIAN, lab, RT, psych nurse, medical social consultant, casting operator, teacher, certification officer, case folder)? Give summary @ -No Was smoking cessation discussed for >3mins.? @ -No Was critical care preformed (if so, how long)? @ -No Were there social determinants of health that impacted care today? How? (Homelessness, low income, unemployed, alcoholism, drug addiction, transportation, low edu. Level, literacy, decrease access to med. care, detention, rehab)? @ -No Was there de-escalation of care discussed even if they declined (Discuss DNR or withdrawal of care, Hospice)? DNR status @ -No What co-morbidities impacted this encounter? (DM, HTN, Smoking, COPD, CAD, Cancer, CVA, ARF, Chemo, Hep., AIDS, mental health diagnosis, sleep apnea, morbid obesity)? @ -None Was patient admitted / discharged? Hospital course, mention meds given and route, prescriptions, significant lab abnormalities, going to OR and other pertinent info. @ -Discharged. Patient presented to the emergency department with left foot pain after slipping with unknown mechanism of injury. XR left foot was obtained which showed no acute fracture. Foot and ankle wrapped in [place] bandage. Patient advised to continue taking her pain medication at home, alternate Tylenol and Motrin as needed for pain. Prescription sent for Flexeril x5 days. Patient discharged in stable condition. Case discussed with my attending Dr. Mckee. Undiagnosed new problem with uncertain prognosis? @ -No Drug Therapy requiring intensive monitoring for toxicity (Heparin, Nitro, Insulin, Cardizem)? @ -No Were any procedures done? @ -No Diagnosis/symptom? @ -foot sprain Acute, or Chronic, or Acute on Chronic? @ -Acute Uncomplicated (without systemic symptoms) or Complicated (systemic symptoms)? @ -Uncomplicated Side effects of treatment? @ -No Exacerbation, Progression, or Severe Exacerbation? @ -No Poses a threat to life or bodily function? How? (Chest pain, [place], [place], pneumonia, PE, COPD, DKA, ARF, appy, cholecystitis, CVA, Diverticulitis, Homicidal, Suicidal, threat to staff... and all critical care pts) @ -No Disposition Clinical Impression: Sprain of left foot Disposition: HOME SELF-CARE Condition: Stable Instructions (If sedation given, give patient instructions): Foot Sprain (ED) Additional Instructions: Please return to the Emergency Department if symptoms worsen or any other concerns. Prescriptions: Cyclobenzaprine [Flexeril] 5 mg PO BID #10 tablet Is patient prescribed a controlled substance at d/c from ED?: No Referrals: Alex Priest MD [Primary Care Provider] - 1-2 days Avel Redd DO [Doctor of Osteopathic Medicine] - 1-2 days Time of Disposition: 12:24
--- NOTE | 2022-12-25 11:57 | XR ---
EXAMINATION TYPE: XR foot complete LT DATE OF EXAM: 12/25/2022 CLINICAL HISTORY: Falling injury with pain TECHNIQUE: Frontal, lateral, and oblique images of the left foot are obtained. COMPARISON: None FINDINGS: Osseous structures are demineralized. There is no acute fracture/dislocation evident in th e left foot. The joint spaces in the left foot appear within normal limits. The overlying soft tiss ue appears unremarkable. IMPRESSION: There is no acute fracture or dislocation in the left foot.
[2022-12-25 12:41] VITALS: BP 112/74; PULSE 72; RESP 14; TEMP 97.9
== END 2022-12-25 12:41 | disposition home or self-care (01) ==
LOC: EC 11:06
DX: S93.602A Unspecified sprain of left foot, initial encounter (principal); E11.9 Type 2 diabetes mellitus without complications; I10 Essential (primary) hypertension; F17.200 Nicotine dependence, unspecified, uncomplicated; E07.9 Disorder of thyroid, unspecified; Z79.890 Hormone replacement therapy; Z79.899 Other long term (current) drug therapy; W01.0XXA Fall on same level from slipping, tripping and stumbling without subsequent striking against object, initial encounter
CPT/HCPCS: 99283

== ENCOUNTER → 2023-08-14 | Outpatient (CLI) | payer OTHER ==
[2023-08-14 08:24] LABS: Basophils # (A) 0.1 k/uL (0-0.2); Basophils % (A) 1 %; Eosinophils # (A) 0.3 k/uL (0-0.7); Eosinophils % (A) 3 %; HCT 39.5 % (34.0-46.0); HGB 13.2 gm/dL (11.4-16.0); Lymphocytes # (A) 1.6 k/uL (1.0-4.8); Lymphocytes % (A) 15 %; MCH 29.5 pg (25.0-35.0); MCHC 33.5 g/dL (31.0-37.0); Mean Platelet Volume 8.1; Monocytes # (A) 0.6 k/uL (0-1.0); Monocytes % (A) 6 %; Neutrophils # (A) 7.6 k/uL (1.3-7.7); Neutrophils % (A) 74 %; Platelet Count 206 k/uL (150-450); RBC 4.48 m/uL (3.80-5.40); RDW 13.3 % (11.5-15.5); WBC 10.3 k/uL (3.8-10.6)
[2023-08-14 08:35] LABS: INR 0.9 (<1.2); Partial Thromboplastin Time 24.4 sec (22.0-30.0); Prothrombin Time 10.3 sec (10.0-12.5)
[2023-08-14 08:50] LABS: African American GFR (CKD) 52 (>60 ml/min/1.73 sqM); Anion Gap 12 mmol/L; Blood Urea Nitrogen 37 mg/dL (7-17); Carbon Dioxide 20 mmol/L (22-30); Chloride 106 mmol/L (98-107); Non-African American GFR(CKD) 45 (>60 ml/min/1.73 sqM); Potassium 5.2 mmol/L (3.5-5.1); Sodium 138 mmol/L (137-145)
== END | disposition home or self-care (01) ==
LOC: LABWHC1 07:35
PROVIDERS: ATTEND Internal Medicine Nephrology
DX: R80.9 Proteinuria, unspecified (principal)
CPT/HCPCS: 36415; 80051; 82565; 84520; 85025; 85610; 85730; 86850; 86900; 86901

== ENCOUNTER 2023-08-15 07:29 | Day surgery (SDC) | payer OTHER ==
[2023-08-15] MEDS ORDERED: ALPRAZolam 0.5 MG TAB PO PRN (08:10)
[2023-08-15] MEDS ORDERED: HYDROmorphone 0.5 MG/0.5 ML SYRINGE IVP PRN (08:10)
[2023-08-15] MEDS ORDERED: DESMOPRESSIN ACETATE 24 MCG in SODIUM CHLORIDE 0.9% 50 ML IVPB ONE (08:43)
[2023-08-15 09:27] VITALS: TEMP 97.8
[2023-08-15 09:46] LABS: Glucose,Whole Blood 146 mg/dL (70-110)
[2023-08-15 11:03] VITALS: RESP 18
--- NOTE | 2023-08-15 12:13 | CT ---
EXAMINATION TYPE: CT biopsy renal RT DATE OF EXAM: 08/15/2023 COMPARISON: NONE HISTORY: Proteinuria CT DLP: 2888 mGycm The procedure was explained to the patient. The risks, complications, benefits, and alternatives wer e discussed and any questions were answered. Informed consent was obtained. Patient was placed pron e on the CT table and prepped and draped in the usual sterile fashion. Utilizing CT guidance, an 18 gauge core biopsy needle access into the right lower pole renal cortex w as achieved and three 18 gauge core samples were obtained. The patient was stable throughout the pro cedure and remained stable upon discharge. IMPRESSION: Successful 18 gauge core biopsy of the kidney function.
[2023-08-15 14:16] VITALS: BP 151/72; PULSE 63
== END 2023-08-15 14:13 | disposition home or self-care (01) ==
LOC: RADPROMAIN 07:29
PROVIDERS: ATTEND Internal Medicine Nephrology
DX: R80.9 Proteinuria, unspecified (principal); E11.9 Type 2 diabetes mellitus without complications; N28.1 Cyst of kidney, acquired; E55.9 Vitamin D deficiency, unspecified; Z79.84 Long term (current) use of oral hypoglycemic drugs; Z79.899 Other long term (current) drug therapy
CPT/HCPCS: 36415; 50200; 77012; J2597; J1170